=== PATIENT | male | born 1995 | race Caucasian/White ===

== ENCOUNTER 2021-05-05 23:36 | Emergency (ER) | payer OTHER ==
[2021-05-05] MEDS ORDERED: BUSPIRONE HYDRO10 MG PO (23:54)
[2021-05-05] MEDS ORDERED: NEURONTIN300 M1 PO (23:54)
[2021-05-06] MEDS ORDERED: LORAZEPAM0.5 M1 PO (01:55)
[2021-05-06 02:00] VITALS: BP 117/84
== END 2021-05-06 02:02 | disposition home or self-care (01) ==
LOC: ED 23:36
DX: F41.0 Panic disorder [episodic paroxysmal anxiety] (principal); F32.A Depression, unspecified; Z79.899 Other long term (current) drug therapy